=== PATIENT | male | born 1985 | race Caucasian/White ===

== ENCOUNTER 2021-09-11 12:42 | Emergency (ER) | payer SELFPAY ==
[~2021-09-11] VITALS: Ht 180.3 cm; Wt 124.7 kg
[2021-09-11 13:14] VITALS: BP_SYST 133
--- NOTE | 2021-09-11 13:14 | NUR ---
Patient to ER bed 5 to gown for evaluation. Side rails up.
--- NOTE | 2021-09-11 13:30 | NUR ---
ASSUMED CARE OF PATIENT. AAOX4 AND AMBULATORY C/O AUDITORY HALLUCTIONS. PER PATIENT HE HEARS VOICES TELLING HIM TO HURT HIMSELF AND OTHERS. PER PATIENT PLAN TO COMMIT SUICIDE IS TO JUMP OFF HIGH BUILDING. PT STATED HE WAS JUST RELEASED FROM [facility]. PER PATIENT HE WAS DX WITH SCHIZO AND DEPRESSION/BIPOLAR. DENIES ANY PAIN. NO NOTED INJURIES. PT'S ROOM STRIPPED FOR SAFETY. ALL BELONGINGS REMOVED FOR SAFETY. PT STATED HE WANTS TO GO BACK TO [facility]. PT IS HOMELESS.
--- NOTE | 2021-09-11 14:09 | NUR ---
MD BOSS AT BEDSIDE FOR EVALUATION.
[2021-09-11 14:36] LABS: BILIRUBIN,URINE NEGATIVE (NEGATIVE); BLOOD, URINE NEGATIVE (NEGATIVE); CLARITY/URINE SL CLOUDY (CLEAR); COLOR,URINE YELLOW (YELLOW); GLUCOSE,URINE NEGATIVE (NEGATIVE); KETONES,URINE NEGATIVE (NEGATIVE); LEUKOCYTE ESTERASE ,URINE NEGATIVE (NEGATIVE); NITRITE, URINE NEGATIVE (NEGATIVE); PROTEIN URINE TRACE (NEGATIVE)
[2021-09-11 14:50] LABS: BARBITURATE, URINE NEGATIVE (NEG <=200); BENZODIAZEPINE, URINE NEGATIVE (NEG <=150); CANNABINOID, URINE POSITIVE (NEG <=50); COCAINE, URINE NEGATIVE (NEG <=150); METHAMPHETAMINES SCREEN,URINE NEGATIVE (NEG <=500); OPIATE, URINE NEGATIVE (NEG <=100); PHENCYCLIDINE SCREEN,URINE NEGATIVE (NEG <=25); UR TRICYCLIC ANTIDEPRESSANTS NEGATIVE (NEG <=300); URINE AMPHETAMINE NEGATIVE (NEG <=500); URINE METHADONE NEGATIVE (NEG <=200); URINE OXYCODONE SCREEN NEGATIVE (NEG <=100); URINE PROPOXYPHENE SCREEN NEGATIVE (NEG <=300)
[2021-09-11 15:55] LABS: BASOPHILS % (AUTO) 0.5 % (0.0-2.0); EOSINOPHILS % (AUTO) 0.5 % (0.0-4.0); HEMATOCRIT 47.1 % (36-54); HEMOGLOBIN 16.4 g/dL (14.0-18.0); LYMPHOCYTES # (AUTO) 1.8 K/uL (1.0-5.5); LYMPHOCYTES % (AUTO) 22.4 % (20.5-51.5); MEAN CORPUSCULAR HEMOGLOBIN 31 pg (27-31); MEAN CORPUSCULAR HGB CONC 35 % (32-36); MEAN CORPUSCULAR VOLUME 88 fL (79.0-98.0); MONOCYTES # (AUTO) 0.7 K/uL (0.0-1.0); MONOCYTES % (AUTO) 8.6 % (1.7-9.3); NEUTROPHILS # (AUTO) 5.6 K/uL (1.8-7.7); PLATELET COUNT (AUTO) 243 K/uL (130-430); RED BLOOD CELL COUNT(AUTO) 5.38 MIL/uL (4.2-6.2); WHITE BLOOD COUNT (AUTO) 8.2 K/uL (4.8-10.8)
--- NOTE | 2021-09-11 15:55 | NUR ---
Lunch safety tray was provided for pt. pt is currently eating. will continue to monitor.
--- NOTE | 2021-09-11 16:11 | NUR ---
pt ambulated to bathroom with steady gait.
[2021-09-11 16:15] LABS: ANION GAP 10 (5-15); CHLORIDE 103 mmol/L (98-107); CREATININE 0.86 mg/dL (0.55-1.30); GLUCOSE 106 mg/dL (70-99); POTASSIUM 3.9 mmol/L (3.5-5.1); SODIUM SERUM 140 mmol/L (136-145); UREA NITROGEN, BLOOD 15 mg/dL (8-21)
[2021-09-11 16:17] LABS: GFR AFRICAN AMERICAN 131 mL/min (>90)
[2021-09-11 16:29] LABS: ALANINE AMINOTRANSFERASE 57 U/L (12-78); ALBUMIN 3.6 g/dL (3.4-4.8); ASPARTATE AMINOTRANSFERASE 33 U/L (10-37); TOTAL BILIRUBIN 0.5 mg/dL (0.0-1.0)
[2021-09-11 16:31] LABS: ACETAMINOPHEN < 1 ug/mL (1-30); ALCOHOL, BLOOD < 3 mg/dL (<10)
--- NOTE | 2021-09-11 16:31 | NUR ---
pt is asleep in bed. will continue to monitor. Report gave to ABBY Augustin
[2021-09-11 16:50] LABS: CHOLESTEROL 177 mg/dL (<200); HDL CHOLESTEROL 29 mg/dL (>45); LDL CHOLESTEROL 107 mg/dL (<100); TRIGLYCERIDES 297 mg/dL (30-150)
--- NOTE | 2021-09-11 18:25 | NUR ---
PT RESTING AT THIS TIME. DENIES ANY PAIN AT THIS TIME. NAD NOTED.
--- NOTE | 2021-09-11 19:16 | NUR ---
Patient remains on suicide precautions. Patient remains in room within close proximity to nurses' station for closer observation and monitoring. All clothing removed, placed in hospital gown. All belongings inventoried, placed in bags and removed from room. Cabinets locked. BP and pulse oximeter cords, and cardiac care nurse leads removed. Pt resting at this time with eyes closed. Normal skin color for ethnicity. Sitter remains at bedside. No signs of acute distress.
--- NOTE | 2021-09-11 19:19 | NUR ---
REPORT GIVEN TO KAREN AMEZQUITA TO ASSUME CARE.
--- NOTE | 2021-09-11 19:23 | NUR ---
Spoke with patient at this time. Pt states "I am not having suicidal thoughts anymore". Sitter remains at bedside. All potentially hazardous objects remain away from patient and away from patient's bedside.
--- NOTE | 2021-09-11 20:30 | NUR ---
Pt given food per pt request
--- NOTE | 2021-09-12 00:25 | NUR ---
Pt sleeping at this time. NAD. Braxton remains at patient bedside.
--- NOTE | 2021-09-12 11:21 | NUR ---
DR MATOS AT BEDSIDE FOR EVALUATION
--- NOTE | 2021-09-12 11:59 | NUR ---
RESTAURANT SHIFT LEADER CALLED TO SEE PT.
--- NOTE | 2021-09-12 12:01 | NUR ---
HOMELESS PACKET EXPLAINED AND PROVIDED TO PATIENT.
--- NOTE | 2021-09-12 12:05 | NUR ---
SELF PROPELLED MINING MACHINE OPERATOR SPEAKING TO PATIENT AT BEDSIDE
--- NOTE | 2021-09-12 12:05 | NUR ---
Patient given written and verbal discharge instructions and verbalizes understanding. ER MD discussed with patient the results and treatment provided. Patient in stable condition. ID arm band removed. no rx given. Patient educated on pain management and to follow up with PMD. Pain Scale 0. Opportunity for questions provided and answered. Medication side effect fact sheet provided.
[2021-09-12 12:06] VITALS: BP_SYST 126
--- NOTE | 2021-09-12 12:15 | NUR ---
TOOL FILER HAND CELESTE Gutierrezette responded to a phone request for social service support from ED to address homelessness and transportation DIGITAL ASSET SPECIALISTHerlinda Greenberg met with patient at bedside. Patient was awake, alert and oriented x4. DIGITAL ASSET SPECIALIST completed introductions, reason for referral, and provided business card. Patient was open to contact Current concern/issue- Patient shared he has recently returned to [place] from [place] and was recently released from [facility] and needs assistance with transportation to family members home. Mental Health- Patient disclosed previous diagnosis of Schizophrenia and Depression. He has recently received inpatient care at [facility], but according to patient, he was told to leave. Social-Patient's mother Kayla Kiran resides in [place]. He shared he has a cousin Fox who resides in [place] who he can stay with. He also has an aunt Kelli in [place]. Housing- Patient shares he has stayed in a fdc but according to patient he was asked to leave for, according to him, unknown reasons. DIGITAL ASSET SPECIALIST explored housing options with patient, and ED staff provided homeless resource packet. DIGITAL ASSET SPECIALIST utilized elements of Cognitive Behavioral Therapy and Motivational to acknowledge patients concerns and to explore connection of untreated mental health conditions and current issue Patient provided permission to contact family members for address for transportation. DIGITAL ASSET SPECIALIST will continue to be available Addendum: 09/12/21 at 1259 by Yari Persaud MSW DIGITAL ASSET SPECIALIST contacted patient's cousin Fox . He shared patient's mother does not want patient to return to [place] for unknown reasons. He also shared he will make an attempt to locate an uncle the patient can be transported to locally. CELESTE Greenberg updated ED RN on plan to contact family members for placement, to address taxi needs, and to complete homeless assessment. . Addendum: 09/12/21 at 1305 by Yari ALONSO CELESTE Greenberg contacted patient's cousin Fox to obtain address, he stated the Uncle does not want patient to stay in his home. CELESTE inquired into his picking up patient, but he is unable to at this time. CELESTE informed him patient will be provided opportunity to be transported to fdc as he has been discharged at this time. CELESTE provided update to ED Addendum: 09/12/21 at 1349 by Yari ALONSO CELESTE Greenberg attempted contact with the patient in the lobby to provide an update and provide information about tranpsoration to a fdc of patient's choice but unable to locate patient. CELESTE updated ED RN Yue PLAN- CELESTE will make another attempt to engage patient to discuss transport to fdc Addendum: 09/12/21 at 1511 by Yari ALONSO CELESTE Greenberg met with patient in main lobby. Patient was utilizing lobby phone to locate open fdc. Patient obtained fdc address in [place] and returned to ED lobby with his belongings to await transportation assistance. CELESTE Greenberg contacted [facility] to assist with obtaining transportation for patient.
--- NOTE | 2021-09-12 12:46 | NUR ---
Patient given written and verbal discharge instructions and verbalizes understanding. ER MD discussed with patient the results and treatment provided. Patient in stable condition. ID arm band removed. NO Rx given. Patient educated on pain management and to follow up with PMD. Pain Scale 0. Opportunity for questions provided and answered.
== END 2021-09-12 12:46 | disposition home or self-care (01) ==
LOC: SED 12:42
DX: R45.851 Suicidal ideations (principal); R44.0 Auditory hallucinations; Z79.899 Other long term (current) drug therapy; Z20.822 Contact with and (suspected) exposure to COVID-19
CPT/HCPCS: 36415; 80053; 80061; 80307; 81003; 82550; 83036; 85025; 87081; 87426; 93005; 99285; G0480; G0481; G0482